=== PATIENT | female | born 1965 | race Caucasian/White ===

== ENCOUNTER 2021-09-17 13:30 | Outpatient (REF) | payer BC, SELFPAY ==
--- NOTE | ~2021-09-17 | MM_ITS ---
EXAMINATION: MM SCREENING DIGITAL BREAST TOMOSYNTHESIS, BILATERAL CLINICAL INFORMATION: Screening. Asymptomatic. Family history breast cancer, mother. The lifetime risk of breast cancer based on the Tyrer-Cuzick Model is 24%. COMPARISON: Mammography: 08/08/2020, 07/25/2020, 04/06/2019, 12/05/2017, 09/16/2016, 06/12/2015 TECHNIQUE: Digital breast tomosynthesis is performed in both the craniocaudal and mediolateral oblique views along with computer-aided detection (CAD). Synthesized 2D images are generated from the tomosynthesis. Additional exaggerated right CC and additional left CC views are provided. FINDINGS: There are scattered areas of fibroglandular density (ACR BI-RADS breast composition Category b). Parenchymal pattern is similar to prior studies. No developing density. No interval mass or architectural abnormality or abnormal calcifications. The axilla and skin contours are unremarkable. MM/MM tomosynthesis screening BI IMPRESSION: No mammographic evidence of malignancy. ASSESSMENT: BI-RADS 1: Negative RECOMMENDATION: Routine annual mammography screening. This patient's information was entered into a reminder system with a target due date for their next mammogram.
== END 2021-09-17 13:31 | disposition home or self-care (01) ==
LOC: HO.MAMMO 13:30
PROVIDERS: PCP Family Medicine; Visit Provider Family Medicine
DX: Z12.31 Encounter for screening mammogram for malignant neoplasm of breast (principal)
CPT/HCPCS: 77063; 77067

== ENCOUNTER 2022-09-18 14:28 | Outpatient (REF) | payer BC, SELFPAY ==
--- NOTE | ~2022-09-18 | MM_ITS ---
EXAMINATION: MM SCREENING DIGITAL BREAST TOMOSYNTHESIS, BILATERAL CLINICAL INFORMATION: Screening. Asymptomatic. The lifetime risk of breast cancer based on the Tyrer-Cuzick Model is 21.8%. Additional annual screening with breast MRI may be of benefit in women with a Score of 20% or greater. COMPARISON: Mammography: September 17, 2021 and studies dating back to April 02, 2014 TECHNIQUE: Digital breast tomosynthesis is performed in both the craniocaudal and mediolateral oblique views along with computer-aided detection (CAD). Synthesized 2D images are generated from the tomosynthesis. FINDINGS: There are scattered areas of fibroglandular density (ACR BI-RADS breast composition Category b). There are no significant masses, abnormal calcifications, or other abnormalities. MM/MM tomosynthesis screening BI IMPRESSION: No significant changes from prior exam. ASSESSMENT: BI-RADS 1: Negative RECOMMENDATION: Routine annual mammography screening. This patient's information was entered into a reminder system with a target due date for their next mammogram.
== END 2022-09-18 14:29 | disposition home or self-care (01) ==
LOC: HO.MAMMO 14:28
PROVIDERS: PCP Family Medicine; Visit Provider Family Medicine
DX: Z12.31 Encounter for screening mammogram for malignant neoplasm of breast (principal)
CPT/HCPCS: 77063; 77067

== ENCOUNTER 2023-03-30 17:07 | Emergency (ER) | payer OTHER, BC, SELFPAY ==
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
[2023-03-30 17:19] VITALS: BP 127/85; PULSE 99; RESP 16; O2SAT 97; BMI 32.9
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
== END 2023-03-30 19:28 | disposition home or self-care (01) ==
PROVIDERS: Emergency Provider Emergency Medicine; PCP Family Medicine
DX: S13.4XXA Sprain of ligaments of cervical spine, initial encounter (principal); M54.2 Cervicalgia; R51.9 Headache, unspecified; V43.52XA Car driver injured in collision with other type car in traffic accident, initial encounter; Y93.9 Activity, unspecified; Y92.481 Parking lot as the place of occurrence of the external cause; Y99.9 Unspecified external cause status
CPT/HCPCS: 70450; 72125; 99282; 99284

== ENCOUNTER 2023-09-24 14:44 | Outpatient (REF) | payer BC, SELFPAY | END 2023-09-24 14:45 | disposition home or self-care (01) | LOC: HO.MAMMO 14:44 | PROVIDERS: PCP Family Medicine; Visit Provider Family Medicine | DX: Z12.31 Encounter for screening mammogram for malignant neoplasm of breast (principal) | CPT/HCPCS: 77063; 77067 ==

== ENCOUNTER → 2023-09-24 14:45 | Outpatient (BNV) | payer BC, SELFPAY | PROVIDERS: PCP Family Medicine; Visit Provider Radiology Diagnostic Radiology | DX: Z12.31 Encounter for screening mammogram for malignant neoplasm of breast (principal) | CPT/HCPCS: 77063; 77067 ==

== ENCOUNTER → 2024-09-29 15:00 | Outpatient (BNV) | payer BC, SELFPAY | PROVIDERS: PCP Family Medicine; Visit Provider Internal Medicine | DX: Z12.31 Encounter for screening mammogram for malignant neoplasm of breast (principal) | CPT/HCPCS: 77063; 77067 ==

== ENCOUNTER 2024-09-29 15:02 | Outpatient (REF) | payer BC, SELFPAY ==
--- NOTE | ~2024-09-29 | MM_ITS ---
EXAMINATION: MM SCREENING DIGITAL BREAST TOMOSYNTHESIS, BILATERAL CLINICAL INFORMATION: Screening. Asymptomatic. COMPARISON: Mammography: Comparison is made with available priors TECHNIQUE: Digital breast mammography with tomosynthesis is performed in both the craniocaudal and mediolateral oblique views along with computer-aided detection (CAD). FINDINGS: There are scattered areas of fibroglandular density (ACR BI-RADS breast composition Category b). There are no significant masses, abnormal calcifications, or other abnormalities. MM/MM tomosynthesis screening BI IMPRESSION: No mammographic evidence of malignancy. ASSESSMENT: BI-RADS BI-RADS 1 - Negative RECOMMENDATION: Routine annual mammography screening. 1 year F/U This examination should not preclude the clinical evaluation of a suspicious palpable abnormality. This patient's information was entered into a reminder system with a target due date for their next mammogram. Electronically signed by: Ami Diehl DO 10/08/2024 10:01 AM [facility]
== END 2024-09-29 15:03 | disposition home or self-care (01) ==
LOC: HO.MAMMO 15:02
PROVIDERS: PCP Family Medicine; Visit Provider Family Medicine
DX: Z12.31 Encounter for screening mammogram for malignant neoplasm of breast (principal)
CPT/HCPCS: 77063; 77067

== ENCOUNTER 2025-10-05 15:13 | Outpatient (REF) | payer BC, SELFPAY ==
--- OUTSIDE RECORDS SUMMARY | 2025-10-05 18:11 | XMS_ITS | Encounter Summary ---
Author Organization [facility] Address [address] [place] [id number] Phone Care Team Providers Care Machine Mover Name Role Phone Carolann Cash MD, MPH Primary Care Provid er Carolann Cash MD, MPH Unavailable + [phone] Carolann Cash MD, MPH Unavailable + [phone] Encounter Details Date Type Department Care Team (Late st Contact Info) Description 10/23/2021 Procedure Pass [facility] Endoscopy Admitting Dept Virtual Department [address] [place] [address] Social History Tobacco Use Types Packs/Day Years Used Date Smoking Tobacco: Never Smokeless Tobacco: Never Alcohol Use Standard Drinks/Week Comments Yes 4 (1 standard drink = 0.6 oz pur e alcohol) Child or Family Care Answer Date Record ed Do you have problems with on e of the following making it difficult for you to work, study, or receive health care? No 05/07/2021 Education Answer Date Recorded Are you interested in help w ith more adult education (for example, completing high school, GED, job training, learning the [place] language, technical skills, or developing parenting skills)? No 05/07/2021 Are you concerned about learning? Not on file 05/07/2021 Not on file 05/07/2021 Not on file 05/07/2021 Food Answer Date Recorded Within the past 6 months we worried whether our food would run out before we got money to buy more. Never True 05/07/2021 Within the past 6 months the food we bought just didn't last and we didn't have enough money to get more. Never True Paying for Meds Answer Date Recorded Do you have trouble paying for medicines? No 05/07/2021 Paying Utility Bills Answer Date Record ed Do you have trouble paying your heating or elect ricity bill? No 05/07/2021 Transportation Answer Date Recorded Has the lack of transportati on kept you from medical appointments or from getting medications? No 05/07/2021 Comments Unknown Sex and Gender Information Value Date Recorded Sex Assigned at Female 05/07/2021 4:08 PM EDT Legal Sex Female 11:32 AM EDT Gender Identity Female 05/07/2021 4:08 PM EDT Sexual Orientation Straight 05/07/2021 4: 08 PM EDT documented as of this encounter Plan of Treatment Not on file documented as of this encounter Visit Diagnoses Not on filedocumented in this encounter Additional Health Concerns Assessment Noted Time PHQ-2 Depression Total Score: 0 10/07/20 21 11:45 AM EST documented as of this encounter Care Teams Machine Mover Relationship Specialty Start Date End Date Carolann Cash MD, MPH [address] [place] [phone] [email or web address] PCP - General Family Medicine 05/07/21 Carolann Cash MD, MPH [address] [place] [phone] Referring Physician Family Medicine 07/02/23 Carolann Cash MD, MPH [address] [id number] [email or web address] Insurance Assigned Provider 12/06/24 documented as of this encounter Additional Source Comments The information contained in this document represents components of the legal health record. It is not the complete legal health record.[facility]
--- OUTSIDE RECORDS SUMMARY | 2025-10-05 18:12 | XMS_ITS | Patient Health Record ---
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
--- OUTSIDE RECORDS SUMMARY | 2025-10-05 18:12 | XMS_ITS | Data Portability ---
Author Organization [facility] Address [address] [facility] [address] [address] Assessment Encounter Date Assessment Date Assessment LastModified by Organization Details LastModified Time 04/18/2022 04/18/2022 Anastasiya Mayers is a 57 year old woman with complaints of knee pain. On exam, she has tenderness on palpation of the medial joint line with mild swelling of both knees. She is here for bilateral knee steroid injections under ultrasound guidance.The risks and benefits of the procedure were reviewed in detail . She wishes to proceed. She can follow up as needed. [email or web address] Not available 04/18/2022 16:15:27 05/21/2022 05/21/2022 Anastasiya Mayers is a 57 year old woman with low back pain radiating into the both lower extremities. On exam ,she has pain on flexion. MRI Lumbar spine shows multilevel discogenic degenerative changes between L2-3 and L5-S1 . Left subarticular extruded disc herniation at L5-S1 with left S1 nerve root impingement. Disc bulging at L4-5 which abuts the exiting right L4 nerve root sleeve. Left lateral disc herniation L 3-4 impinging on the exiting the left L3 nerve root. Postoperative changes on the left at L5-S1 . She is here for a Lumbar epidural steroid injections under fluoroscopic guidance . The risks and benefits of the procedure were discussed in detail. She wishes to proceed. She can follow up as needed. [email or web address] Not available 05/21/2022 14:52:51 07/10/2022 07/10/2022 Anastasiya Mayers is a 57 year old woman with complaints of knee pain. On exam, she has tenderness on palpation of the medial joint line with mild swelling of both knees. She is here for bilateral knee steroid injections under ultrasound guidance.The risks and benefits of the procedure were reviewed in detail . She wishes to proceed. She can follow up as needed. elizabeth Not available 07/10/2022 15:59:12 09/10/2022 09/10/2022 Anastasiya Mayers is a 57 year old woman with low back pain radiating into the both lower extremities. On exam ,she has pain on flexion. MRI Lumbar spine shows multilevel discogenic degenerative changes between L2-3 and L5-S1 . Left subarticular extruded disc herniation at L5-S1 with left S1 nerve root impingement. Disc bulging at L4-5 which abuts the exiting right L4 nerve root sleeve. Left lateral disc herniation L 3-4 impinging on the exiting the left L3 nerve root. Postoperative changes on the left at L5-S1 . She is here for a Lumbar epidural steroid injections under fluoroscopic guidance . The risks and benefits of the procedure were discussed in detail. She wishes to proceed. She can follow up as needed. elizabeth Not available 09/10/2022 14:52:51 01/21/2023 01/21/2023 Anastasiya Mayers is a 57 year old woman with low back pain radiating into the both lower extremities. On exam ,she has pain on flexion. MRI Lumbar spine shows multilevel discogenic degenerative changes between L2-3 and L5-S1 . Left subarticular extruded disc herniation at L5-S1 with left S1 nerve root impingement. Disc bulging at L4-5 which abuts the exiting right L4 nerve root sleeve. Left lateral disc herniation L 3-4 impinging on the exiting the left L3 nerve root. Postoperative changes on the left at L5-S1 . She is here for a Lumbar epidural steroid injections under fluoroscopic guidance . The risks and benefits of the procedure were discussed in detail. She wishes to proceed. She can follow up in two months elizabeth Not available 01/21/2023 14:25:14 Plan of Treatment Reminders Order Date Submit Date Provider Last Modified By Organization Details Last Modified Time Details Appointments None record ed. Lab None record ed. Referral None record ed. Procedures None record ed. Surgeries None record ed. Imaging None record ed. Medication Orders None record ed. Patient TargetsNo targets recorded. Patient Instructions Encounter Date Encounter Id Patient Instructions Last Modified By Organization Details Last Modified Time 04/18/2022 [id number] She was advised against bed rest lasting longer than four days and to continue activities as tolerated. [email or web address] Not available 04/18/2022 16:14:19 05/21/2022 [id number] She was advised against bed rest lasting longer than four days and to continue activities as tolerated. [email or web address] Not available 05/21/2022 14:51:33 07/10/2022 [id number] She was advised against bed rest lasting longer than four days and to continue activities as tolerated. [email or web address] Not available 07/10/2022 15:59:13 09/10/2022 [id number] She was advised against bed rest lasting longer than four days and to continue activities as tolerated. [email or web address] Not available 09/10/2022 14:52:54 01/21/2023 [id number] She was advised against bed rest lasting longer than four days and to continue activities as tolerated. [email or web address] Not available 01/21/2023 14:23:55 Reason for Referral None Reported. Results Created Date Observation Date Name Description Value Unit Range Abnormal Flag Note LastModifiedBy Organization Detail LastModifiedTime 09/11/20 22 09/11/2022 XR, lumba r spine No observ ation record ed. [facility]) [address], [place], [address], 09/12/2022 09:46:06 09/11/20 22 09/11/2022 XR, knee No observ ation record ed. [facility]) [address], [place], [address], 09/12/2022 09:46:19 Result Notes None recorded. Problems Name Problem SNOMED Code Status Onset Date Resolution Date Notes Provider Name and Address Organization Details Recorded Time Lumbar post-laminecto my syndrome 889256035 Active Dav jackson MD [address] [facility] , [address], [facility], [address] , [facility] - Pain Management 07/25/201 9 15:17:52 Lumbosacral radiculopathy 2911338 Active Dav jackson MD [address] , [address], [place], [address], [place] [facility] 15:18:05 Degeneration of lumbar intervertebral disc 99392094 Active Dav jackson MD [address] , [address], [place], [address], [place] [facility] 15:18:14 Lumbosacral spondylosis without myelopathy 62698393 Active Dav jackson MD [address] , [address], [place], [address], [place] [facility] 15:18:32 Problem Notes None recorded. Procedures Surgical History Date Name Laterality Status Provider Name and Address Organization Details Recorded Time 01/21/20 23 Lumbar Epidural steroid injection under fluoroscopic guidance completed Dav Mon MD [address] , [address], [place], [address], [place] [facility] 01/21/2023 14:24:41 09/10/20 22 Lumbar Epidural steroid injection under fluoroscopic guidance completed Dav Mon MD [address] , [address], [place], [address], [place] [facility] 09/10/2022 14:54:21 07/10/20 22 Intra-articular Knee Steroid Injection completed Dav Mon MD [address] , [address], [place], [address], [place] [facility] 07/10/2022 15:59:23 05/21/20 22 Lumbar Epidural steroid injection under fluoroscopic guidance completed Dav Mon MD [address] , [address], [place], [address], [place] [facility] 05/21/2022 14:52:23 04/18/20 22 Intra-articular Knee Steroid Injection completed Dav Mon MD [address] , [address], [place], [address], [place] [facility] 04/18/2022 16:14:38 03/08/20 22 Lumbar Epidural steroid injection under fluoroscopic guidance completed Dav Mon MD [address] , [address], [place], [address], [place] [facility] 02/05/2022 14:24:57 01/03/20 22 Intra-articular Knee Steroid Injection completed Dav Mon MD [address] , [address], [place], [address], [place] [facility] 01/03/2022 16:11:10 10/03/20 21 Intra-articular Knee Steroid Injection completed Dav Mon MD [address] , [address], [place], [address], [place] [facility] 10/03/2021 14:51:11 09/19/20 21 Lumbar Epidural steroid injection under fluoroscopic guidance completed Dav Mon MD [address] , [address], [place], [address], [place] [facility] 09/19/2021 13:23:01 07/05/20 21 Intra-articular Knee Steroid Injection completed Dav Mon MD [address] , [address], [place], [address], [place] [facility] 07/05/2021 13:49:44 04/05/20 21 Intra-articular Knee Steroid Injection completed Dav Mon MD [address] , [address], [place], [address], [place] [facility] 04/05/2021 14:02:44 03/15/20 21 Intra-articular Knee Steroid Injection completed Dav Mon MD [address] , [address], [place], [address], [place] [facility] 03/15/2021 14:40:20 12/14/19 21 Intra-articular Knee Steroid Injection completed Dav Mon MD [address] , [address], [place], [address], [place] [facility] 12/14/2020 14:21:08 09/14/20 20 Intra-articular Knee Steroid Injection completed Dav Mon MD [address] , [address], [place], [address], [place] [facility] 09/14/2020 14:27:11 07/18/20 20 Lumbar Epidural steroid injection under fluoroscopic guidance completed Dav Mon MD [address] , [address], [place], [address], [place] [facility] 07/19/2020 09:45:01 06/07/20 20 Intra-articular Knee Steroid Injection completed Dav Mon MD [address] , [address], [place], [address], [place] [facility] 06/07/2020 15:21:33 04/18/20 20 Lumbar Epidural steroid injection under fluoroscopic guidance completed Dav Mon MD [address] [facility] , [address], [place], [address], [place] [facility] 04/20/2020 09:43:01 01/25/20 20 Lumbar Epidural steroid injection under fluoroscopic guidance completed Dav Mon MD [address] [facility] , [address], [place], [address], [place] [facility] 01/25/2020 15:21:05 10/26/20 19 Lumbar Epidural steroid injection under fluoroscopic guidance completed [facility] [address], [place], [address], [place] [facility] 10/27/2019 10:41:05 07/14/20 19 Lumbar Epidural steroid injection under fluoroscopic guidance completed Dav [facility] MD [address] [facility] [address], [place], [address], [place] [facility] 07/16/2019 09:54:03 Back Surgery completed Rosemarie Hernandez [place] - [facility] 06/24/2019 15:23:12 Other completed Rosemarie Hernandez [place] - [facility] 06/24/2019 15:23:45 Imaging Results None recorded. Procedure Notes None recorded. Medical Equipment None Reported. Allergies No known drug allergies Medications Name Sig Start Date Stop Date Status Note LastModified by Organization Details LastModified Time cyclobenzap rine 10 mg tablet TK 1 T PO D HS PRF SPASM 06/24 completed Not Available Not Available Not Available gabapentin 600 mg tablet TK 1 T PO TID 06/24 completed Not Available Not Available Not Available prednisone 20 mg tablet TK 1 T PO IN THE MORNING WF FOR 5 DAYS UTD 01/25 completed Not Available Not Available Not Available IB Pro 400 mg tablet Take 1 tablet every 4 hours by oral route. active Not Available Not Available No t Available amoxicillin 875 mg tablet TAKE 1 TABLET BY MOUTH TWICE DAILY FOR 10 DAYS FOR INFECTION 07/10 completed Not Available Not Available Not Available aspirin 325 mg tablet,palma yed release TAKE 1 TABLET BY MOUTH ONCE A DAY FOR 14 DAYS POST OPERATIVE LY 01/21 completed Not Available Not Available Not Available benzonatate 100 mg capsule TK 1 C PO TID FOR 10 DAYS. DO NOT CRU OR CHEW 06/24 completed Not Available Not Available Not Available clotrimazol e-betametha sone 1 %-0.05 % topical cream APPLY TOPICALLY TO THE AFFECTED AREA TWICE DAILY SPARINGLY FOR 2 WEEKS FOR FUNGAL OR YEAST INFECTION active Not Available Not Available No t Available gabapentin 300 mg capsule TK 1 C PO TID 06/24 completed Not Available Not Available Not Available hydrochloro thiazide 25 mg tablet TAKE 1 TABLET BY MOUTH DAILY active Not Available Not Available No t Available doxycycline hyclate 100 mg tablet TK 1 T PO BID FOR 7 DAYS 01/25 completed Not Available Not Available Not Available loratadine 10 mg tablet TK 1 T PO D FOR 14 DAYS 06/24 completed Not Available Not Available Not Available amoxicillin 875 mg-potassiu m clavulanate 125 mg tablet TK 1 T PO Q 12 H FOR 7 DAYS 04/18 completed Not Available Not Available Not Available oxycodone 5 mg tablet TAKE 1 TABLET BY MOUTH EVERY 6 HOURS NEEDED FOR PAIN (DO NOT DRIVE WHILE ON THIS MEDICATIO N) active Not Available Not Available No t Available Virtussin AC 10 mg-100 mg/5 mL oral liquid TK 5 MLS PO Q 4 H PRF COUGH FOR 5 DAYS 01/25 completed Not Available Not Available Not Available Plenvu 140 gram-9 gram-5.2 gram powder packs MIX AND DRINK DIRECTED 01/03 completed Not Available Not Available Not Available Vitals Date Recorded Body height Heart rate Oxygen saturation Oxygen saturation in Arterial blood by Pulse oximetry Systolic And Diastolic Provider Name and Address Organization Details Last Updated DateTime 3 167.64 cm 77 /min 99 % 99 % 153/62 mm[Hg] Yolis Madera [place] [facility] 3 14:03:41 Date Recorded Body height Body mass index (BMI) Body weight Heart rate Oxygen saturation Oxygen saturation in Arterial blood by Pulse oximetry Systolic And Diastolic Provider Name and Address Organization Details Last Updated DateTime 2 167.64 cm 31.5 kg/m2 07026.5 1 g 6 /min 95 % 95 % 147/84 mm[Hg] Dav jackson MD [address] , [address], [place], [address], [place] [facility] 2 15:06:01 Date Recorded Body height Heart rate Oxygen saturation Oxygen saturation in Arterial blood by Pulse oximetry Systolic And Diastolic Provider Name and Address Organization Details Last Updated DateTime 2 167.64 cm 86 /min 98 % 98 % 150/64 mm[Hg] Dav jackson MD [address] , [address], [place], [address], [place] [facility] 2 14:34:44 Date Recorded Body height Heart rate Oxygen saturation Oxygen saturation in Arterial blood by Pulse oximetry Systolic And Diastolic Provider Name and Address Organization Details Last Updated DateTime 2 167.64 cm 64 /min 97 % 97 % 150/68 mm[Hg] Chante Holt [place] - [facility] 2 15:44:29 Date Recorded Body height Heart rate Oxygen saturation Oxygen saturation in Arterial blood by Pulse oximetry Systolic And Diastolic Provider Name and Address Organization Details Last Updated DateTime 2 167.64 cm 83 /min 99 % 99 % 149/53 mm[Hg] Dav jackson MD [address] , [address], [place], [address], [place] [facility] 2 14:32:14 Social History Question Answer Notes LastModified by Organizat ion Details LastModified Time Tobacco Smoking Status Never Smoker Rosemarie tran, [place] - [facility] 06/24/2019 15:19:05 Which Illicit Or Recreational Drugs Have You Used? No Information not available 06/24/2019 Education 12 With Some College Information not available 06/24/2019 Live Alone Or With Others? With Others Information not available 06/24/2019 Marital Status Informatio n not available 06/24/2019 Sex: Unknown Functional Status Question Answer Note LastModified by Organizat ion Details LastModified Time What is your level of alcohol consumption? 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 Teacher Information not available 06/24/2019 Mental Status None recorded. Family History Relationship Description Onset Age of this Age Resolved Age Notes LastModified by Organization Details LastModified Time Father Malignant neoplastic disease Leukem ia Not available 06/24/2019 15:18:31 Mother Malignant neoplastic disease Breast / Lung Not available 06/24/2019 15:18:31 Brother Malignant neoplastic disease Talon ns Not available 06/24/2019 15:18:31 Sister Malignant neoplastic disease Talon n Not available 06/24/2019 15:18:31 Medical History Condition Response Hypertension Y Gynecological HistoryNo gynecological history recorded. Obstetrics History GPAL:G 0 P 0 0 0 0 Past Encounters Encounter ID Performer Location Encounter Start Date Encounter Closed Date Diagnosis/Indication Diagnosis SNOMED-CT Code Diagnosis ICD10 Code Diagnosis IMO Codes Diagnosis Note [id number] Dav Mon MD PAIN OFFICE [address] [place] [address] 06/24/2019 14:50:11 06/25/2019 16:44:44 Lumbar post-laminectomy syndrome 000130460 M96.1 Lumbosacra l radiculopathy 6055620 M54.17 Degenerati on of lumbar intervertebral disc 96402064 M51.36 Lumbosacra l spondylosis without myelopathy 06701477 M47.817 [id number] Dav Mon MD PAIN OFFICE [address] [place] [address] 07/14/2019 14:31:46 07/16/2019 09:57:41 Lumbar post-laminectomy syndrome 885830452 M96.1 Lumbosacra l radiculopathy 6767457 M54.17 Degenerati on of lumbar intervertebral disc 43551049 M51.36 Lumbosacra l spondylosis without myelopathy 76071396 M47.817 [id number] Dav Mon MD PAIN OFFICE [address] [facility] [place] [address] 09/06/2019 13:59:25 09/06/2019 16:39:07 Lumbar post-laminectomy syndrome 599671191 M96.1 Lumbosacra l radiculopathy 5516266 M54.17 Degenerati on of lumbar intervertebral disc 85017076 M51.36 Lumbosacra l spondylosis without myelopathy 80617173 M47.817 [id number] Dav Mon MD PAIN OFFICE [address] [facility] [place] [address] 10/26/2019 15:05:59 10/27/2019 10:43:51 Lumbar post-laminectomy syndrome 026038159 M96.1 Lumbosacra l radiculopathy 6377739 M54.17 Degenerati on of lumbar intervertebral disc 60691882 M51.36 Lumbosacra l spondylosis without myelopathy 30364678 M47.817 [id number] Dav Mon MD PAIN OFFICE [address] [facility] [place] [address] 01/25/2020 14:55:10 01/25/2020 15:26:09 Lumbar post-laminectomy syndrome 577860448 M96.1 Lumbosacra l radiculopathy 1395175 M54.17 Degenerati on of lumbar intervertebral disc 84967373 M51.36 Lumbosacra l spondylosis without myelopathy 26792605 M47.817 [id number] Dav Mon MD PAIN OFFICE [address] [facility] [place] [address] 04/18/2020 14:27:14 04/20/2020 10:18:02 Lumbar post-laminectomy syndrome 884457678 M96.1 Lumbosacra l radiculopathy 0916170 M54.17 Degenerati on of lumbar intervertebral disc 23649884 M51.36 Lumbosacra l spondylosis without myelopathy 07827564 M47.817 [id number] Dav Mon MD PAIN OFFICE [address] [place] [address] 05/18/2020 10:00:32 05/18/2020 10:32:27 Lumbar post-laminectomy syndrome 686361193 M96.1 Lumbosacra l radiculopathy 9648488 M54.17 Degenerati on of lumbar intervertebral disc 85878887 M51.36 Lumbosacra l spondylosis without myelopathy 21442120 M47.817 [id number] Dav Mon MD PAIN OFFICE [address] [place] [address] 06/07/2020 14:49:29 06/07/2020 15:26:01 Osteoarthritis of knee 573298499 M17.0 [id number] Dav Mon MD [facility] [address] [place] [address] 07/18/2020 13:50:19 07/19/2020 10:04:59 Lumbar post-laminectomy syndrome 232200752 M96.1 Lumbosacra l radiculopathy 3804517 M54.17 Degenerati on of lumbar intervertebral disc 79068620 M51.36 Lumbosacra l spondylosis without myelopathy 46511820 M47.817 [id number] Dav Mon MD [facility] [address] [place] [address] 09/14/2020 13:59:32 09/14/2020 14:33:14 Osteoarthritis of knee 978914150 M17.0 [id number] Dav Mon MD [facility] [address] [place] [address] 12/14/2020 13:55:24 12/14/2020 14:22:46 Osteoarthritis of knee 918505366 M17.0 [id number] Dav Mon MD [facility] [address] [place] [address] 03/15/2021 14:02:58 03/15/2021 14:44:36 Osteoarthritis of knee 780897972 M17.0 [id number] Dav Mon MD [facility] [address] [place] [address] 04/05/2021 13:37:00 04/05/2021 14:04:03 Osteoarthritis of knee 307548403 M17.0 [id number] Dav Mon MD [facility] [address],[place] [address] 07/05/2021 13:27:10 07/05/2021 13:51:35 Osteoarthritis of knee 126221480 M17.0 [id number] Dav Mon MD [facility] [address],[place] [address] 09/19/2021 11:35:15 09/19/2021 13:32:14 Lumbar post-laminectomy syndrome 530468252 M96.1 Lumbosacra l radiculopathy 0662702 M54.17 Degenerati on of lumbar intervertebral disc 30600860 M51.36 Lumbosacra l spondylosis without myelopathy 45617181 M47.817 [id number] Dav Mon MD [facility] [address],[place] [address] 10/03/2021 13:53:11 10/03/2021 15:04:33 Osteoarthritis of knee 415793227 M17.0 [id number] Dav Mon MD [facility] [address] [address] 01/03/2022 13:32:04 01/03/2022 16:13:47 Osteoarthritis of knee 322785552 M17.0 [id number] Dav Mon MD [facility] [address],[place] [address] 02/05/2022 13:59:25 02/05/2022 14:27:30 Lumbar post-laminectomy syndrome 868850903 M96.1 Lumbosacra l radiculopathy 2869070 M54.17 Degenerati on of lumbar intervertebral disc 40328218 M51.36 Lumbosacra l spondylosis without myelopathy 88615075 M47.817 [id number] Dav Mon MD PAIN OFFICE [address] [place] [address] 04/18/2022 14:55:45 04/18/2022 16:16:10 Osteoarthritis of knee 250350291 M17.0 [id number] Dav Mon MD PAIN OFFICE [address] [place] [address] 05/21/2022 14:29:59 05/21/2022 14:55:14 Lumbar post-laminectomy syndrome 941533695 M96.1 Lumbosacra l radiculopathy 0390060 M54.17 Degenerati on of lumbar intervertebral disc 19471222 M51.36 Lumbosacra l spondylosis without myelopathy 37901729 M47.817 [id number] Dav Mon MD PAIN OFFICE [address] [place] [address] 07/10/2022 15:28:32 07/10/2022 16:00:57 Osteoarthritis of knee 448515329 M17.0 [id number] Dav Mon MD PAIN OFFICE [address] [place] [address] 09/10/2022 14:28:31 09/10/2022 15:19:36 Lumbar post-laminectomy syndrome 878020231 M96.1 Lumbosacra l radiculopathy 8952395 M54.17 Degenerati on of lumbar intervertebral disc 68832066 M51.36 Lumbosacra l spondylosis without myelopathy 64770880 M47.817 [id number] Dav Mon MD PAIN OFFICE [address] [place] [address] 01/21/2023 14:01:18 01/21/2023 14:31:01 Lumbar post-laminectomy syndrome 591275570 M96.1 Lumbosacra l radiculopathy 4024317 M54.17 Degenerati on of lumbar intervertebral disc 13388968 M51.36 Lumbosacra l spondylosis without myelopathy 57696269 M47.817 Health Concerns Section Related Observation LastModified by Organization Detai ls LastModified Time None Recorded Concern Status LastModified by Organization Details LastModified Time None Recorded Advance Directives Directive None Recorded Payers Insurance Date Sequence Insurance Name Policy Number Policy Clark Covered Member ID Clark Member ID Guarantor Name 03/31/[address] ([facility]) [id number] 1 Anastasiya Mayers [id number] Anastasiya Mayers Notes Date Note Type Note Provider Name and Address Organization Details Recorded Time 04/18/2022 text/html She is here for a bilateral knee steroid injection under ultrasound guidance Dav Mon MD [address] [facility] , [address] [address], [place], [address], [place] [facility] 04/18/2022 16:47:48 05/21/2022 text/html She is here for a lumbar epidural steroid injection under fluoroscopic guidance. Dav Mon MD [address] [facility] , [address] [address], [place], [address], [place] [facility] 05/21/2022 15:00:46 07/10/2022 text/html She is here for a bilateral knee steroid injection under ultrasound guidance Dav Mon MD [address] [facility] , [address], [place], [address], [place] [facility] 07/10/2022 16:11:41 09/10/2022 text/html She is here for a lumbar epidural steroid injection under fluoroscopic guidance. Dav Mon MD [address] [facility] , [place] [address], [place], [address], [place] - [facility] 09/10/2022 15:27:04 01/21/2023 text/html She is here for a lumbar epidural steroid injection under fluoroscopic guidance. Dav Mon MD [address] [place] [address] , [address], [facility] [id number], [facility] Pain [facility] 01/21/2023 14:48:43 OBGyn Episode No OBEpisode recorded.
--- OUTSIDE RECORDS SUMMARY | 2025-10-05 18:12 | XMS_ITS | Clinical Summary ---
Author Organization [facility] Address [address] [address] Phone Care Team Providers Care Undergraduate Advisor Name Role Phone Carolann Cash MD, MPH Primary Care Provid er Carolann Cash MD, MPH Unavailable +- [phone] Carolann Cash MD, MPH Unavailable +- [phone] Allergies No known active allergies Medications hydroCHLOROthiazi de 25 MG tabletIndications :Essential hypertension TAKE 1 TABLET(25 MG) BY MOUTH DAILY 90 tablet 3 01/24/2025 Active sertraline (ZOLOFT) 50 MG tabletIndications :Complicated grief TAKE 1 TABLET(50 MG) BY MOUTH DAILY 90 tablet 3 03/28/2025 Active Active Problems Problem Noted Date Diagnosed Date Complicated grief 01/10/2024 Overview (01/10/2024): Brother committed suicide Jan 2023 Assessment & Plan (01/24/2025 1:40 PM EST): Controlled, cont current meds Assessment & Plan (01/10/2024 10:33 PM EST): Reviewed resources, normal grieving but also the ability for medication to provide some support. She is open to starting zoloft. Reviewed side effects and time to effect. Hyperlipidemia 02/19/2023 Assessment & Plan (01/24/2025 1:40 PM EST): Due for monitoring. Last year was improved. Orders: Lipid panel; Future Comprehensive metabolic panel; Future Assessment & Plan (02/19/2023 10:35 PM EDT): Not on meds, work on return to exercise and check levels before FUV in 6 months Varicose veins of right lower extremity with umang n 10/08/2021 Essential hypertension 05/29/2021 Assessment & Plan (01/24/2025 1:40 PM EST): Well controlled, cont current meds Orders: Comprehensive metabolic panel; Future Assessment & Plan (02/19/2023 10:34 PM EDT): Well controlled, cont current meds Assessment & Plan (05/29/2021 12:24 PM EDT): Borderline well controlled today. Chronic pain of both knees 05/29/2021 Assessment & Plan (05/29/2021 12:23 PM EDT): Cont with current provider in [facility] Family history of breast cancer 05/29/2021 Immunizations Immunization Administration Dates Next Due COVID-19 (Pre-09/22) Pfizer Vaccine, mRNA, PF ,02/14/2021 INFLUENZA, SPLIT VIRUS, TRIVALENT W/ PRESERVATIV E IM 09/23/2019 Td (adult) 5 Lf Tetanus Toxoid, PF, Adsorbed Tdap 08/20/2011 Family History Medical History Relation Comments Lymphoma Brother Hodgkins Suicide Brother No Known Problems Daughter Leukemia Father Lung cancer Maternal Aunt Coronary artery disease Maternal Grandfather Breast cancer Maternal Grandmother Lung cancer Maternal Grandmother Breast cancer Mother Diabetes Mother Lung cancer Mother Lymphoma Nephew Breast cancer Paternal Aunt Cancer Paternal Uncle Lymphoma Sister 1 No Known Problems Son Colon cancer Neg Hx Relation Status Comments Brother Daughter Alive Father (Age 67) Maternal Aunt Maternal Grandfather (Age 65) Maternal Grandmother Mother (Age 78) Nephew Alive Paternal Aunt Paternal Uncle Sister 1 (Age 34) Sister 2 Alive Son Alive Social History Tobacco Use Types Packs/Day Years Used Date Smoking Tobacco: Never Smokeless Tobacco: Never Tobacco Cessation:Counseling Given: Not Answered Alcohol Use Standard Drinks/Week Comments Yes 4 (1 standard drink = 0.6 oz pur e alcohol) Child or Family Care Answer Date Record ed Do you have problems with on e of the following making it difficult for you to work, study, or receive health care? No 01/24/2025 Education Answer Date Recorded Are you interested in help w ith more adult education (for example, completing high school, GED, job training, learning the Chinese language, technical skills, or developing parenting skills)? No 01/24/2025 Are you concerned about learning? Not on file 01/24/2025 No 01/24/2025 Yes 01/24/2025 Food Answer Date Recorded Within the past 6 months we worried whether our food would run out before we got money to buy more. Never True 01/24/2025 Within the past 6 months the food we bought just didn't last and we didn't have enough money to get more. Never True Residential Stability Answer Date Recor ded What is your housing situation today? I have stacy sing 01/24/2025 How many times have you move d in the past 12 months? Zero (I did not move) 01/24/2025 Paying for Meds Answer Date Recorded Do you have trouble paying for medicines? No 01/24/2025 Paying Utility Bills Answer Date Record ed Do you have trouble paying your heating or elect ricity bill? No 01/24/2025 Transportation Answer Date Recorded Has the lack of transportati on kept you from medical appointments or from getting medications? No 01/24/2025 Unemployment Answer Date Recorded Are you currently unemployed or working on a part-time or temporary basis, and looking for work? No 02/12/2023 Digital Access Answer Date Recorded No 01/24/2025 Yes 01/24/2025 Do you have reliable internet access at home? Ye s 01/24/2025 Do you have a device (e.g., phone, tablet, computer) with a working camera? Yes 01/24/2025 Intimate Partner Violence Answer Date R ecorded Denied Basic Needs Not on file 01/24/2025 In the past 12 months have y ou been in a relationship with a person who hurts, threatens, or tries to control you? No 01/24/2025 Worried food would run out Not on file 01/24 In the past 12 months have y ou been in a relationship with a person who hurts, threatens, or tries to control you? No 01/24/2025 Comments Unknown Sex and Gender Information Value Date Recorded Sex Assigned at Female 05/07/2021 4:08 PM EDT Legal Sex Female 11:32 AM EDT Gender Identity Female 05/07/2021 4:08 PM EDT Sexual Orientation Straight 05/07/2021 4: 08 PM EDT Last Filed Vital Signs Vital Sign Reading Time Taken Comments Blood Pressure 114/70 01/24/2025 11:12 AM EST Pulse 84 01/24/2025 11:12 AM EST Temperature 36.6 C (97.9 F) 11/20/2023 1:41 PM EST Respiratory Rate 16 10/23/2021 12:40 PM EST Oxygen Saturation 98% 01/24/2025 11:12 AM EST Inhaled Oxygen Concentration - - Weight 93 kg (205 lb) 01/24/2025 11:12 AM EST Height 163.8 cm (5' 4.5 ) 02/19/2023 1:00 PM EDT Body Mass Index 34.64 02/19/2023 1:00 PM EDT Plan of Treatment Health Maintenance Due Date Last Done Comments COLOGUARD 2009 FIT TEST 2009 FOBT 2009 SIGMOIDOSCOPY 2009 VIRTUAL COLONOSCOPY 2009 PNEUMOCOCCAL VACCINES (50+ years) (1 of 1 - PCV) 2014 ZOSTER VACCINES (1 of 2) 2014 POTASSIUM LEVEL 03/18/2025 03/18/2024, 05/01, 01/21/2022 INFLUENZA VACCINE (#1) 2025 09/23/2019 BLOOD PRESSURE 07/24/2025 01/24/2025 COVID-19 VACCINE (4 - season) 2025 03/10/2022, 03/07/2021, 02/14/2021 DEPRESSION SCREENING 01/24/2026 01/24/2025 PAP SMEAR 02/19/2026 02/19/2023 MAMMOGRAM 09/29/2026 09/29/2024, 09/01, 09/18/2022, Additional history exists SCREENING FOR DIABETES 03/18/2027 03/18/2024 Adult Td,Tdap Booster 04/22/2027 04/22/2017, 011 LIPID PANEL 03/18/2029 03/18/2024, 06/01/2023, 01/21/2022 COLONOSCOPY 10/23/2031 10/23/2021 COLORECTAL CANCER SCREENING 10/23/2031 RSV VACCINE (1 - 1-dose 75+ series) 2039 HEPATITIS C SCREENING Completed 01/21/2022 HIV ONE-TIME SCREENING (18-65 YEARS) Completed 01/21/2022 SMOKING STATUS SCREENING (Once After 26 Yrs) Completed 01/24/2025 HEPATITIS A VACCINES Aged Out No long er eligible based on patient's age to complete this topic HIB VACCINES Aged Out No longer eligi ble based on patient's age to complete this topic MENINGOCOCCAL VACCINES (ACWY) Aged Out No longer eligible based on patient's age to complete this topic MENINGOCOCCAL VACCINES (B) Aged Out N o longer eligible based on patient's age to complete this topic Medical Devices Not on file Procedures Procedure Name Priority Date/Time Associated Diagnosis Comments HM MAMMOGRAPHY Routine 09/29/2024 8:37 AM EDT LIPID PANEL Routine 03/18/2024 8:10 AM EDT Hyperlipidemia, unspecified hyperlipidemia type BASIC METABOLIC PANEL (BMP) Routine 03/18/2024 8:10 AM EDT Essential hypertension PAP TEST Routine 02/19/2023 12:00 AM EDT HEPATITIS C ANTIBODY, QUALITATIVE Routine 01/21/2022 9:17 AM EST Need for hepatitis C screening test ENDOSCOPY, COLON 10/23/2021 12:0 2 PM EST from Last 3 Months or Most Recently Relevant to Health Maintenance Results * HM MAMMOGRAPHY FOR RESULT ENTRY ONLY (09/29/2024 8:37 AM EDT) us Historical Provider HEALTH MAINTENANCE Edited Result - Final * (ABNORMAL) Lipid panel (03/18/2024 8:10 AM EDT) HDL 68 mg/dL [facility] Comment: Interpretation <40 mg/dL: Low HDL cholesterol (major risk factor for CHD) Greater than or equal to 60 mg/dL: High HDL cholesterol ( negative risk factor for CHD) HDL - cholesterol is affected by a number of factors, e.g. smoking, excerise, hormones, sex and age. CHOLESTEROL 236 0 - 240 mg/dL [facility] TRIGLYCERIDES 106 30 - 160 mg/dL [facility] LDL 147(H) 50 - 129 mg/dL [facility] Comment: LDL levels in terms of risk for coronary heart disease: <100 mg/dL: Optimal 100-129 mg/dL: Near or above optimal 130-159 mg/dL: Borderline high 160-189 mg/dL: High >190 mg/dL: Very High CARDIAC RISK RATIO 3.5 3.3 - 4.4 C [facility] Blood 03/18/2024 8:10 AM EDT 03/18/2024 8:19 AM EDT Carolann Cash MD, MPH LAB BLOOD BKR ORDERA BLES Final Result [address] [address] * (ABNORMAL) Basic metabolic panel (03/18/2024 8:10 AM EDT) SODIUM 143 133 - 146 mmol/L [facility] CHLORIDE 103 96 - 108 mmol/L [facility] POTASSIUM 3.9 3.3 - 5.1 mmol/L [facility] CO2 29 21 - 35 mmol/L [facility] BUN 18 6 - 19 mg/dL [facility] CREATININE 0.50 0.5 - 1.5 mg/dL [facility] GLUCOSE 103(H) 70 - 99 mg/dL [facility] CALCIUM 9.5 8.4 - 10.3 mg/dL [facility] EGFR 108 >59 mL/min/1.7 3m2 [facility] Comment:Estimated glomerular filtration rate calculated using the CKD-EPI refit equation. ANION GAP 15 10 - 20 mmol/L [facility] Blood 03/18/2024 8:10 AM EDT 03/18/2024 8:19 AM EDT Carolann Cash MD, MPH LAB BLOOD BKR ORDERA BLES Final Result [address] [address] * Pap Test (02/19/2023 12:00 AM EDT) 02/19/2023 02/20/2023 10: 10 AM EDT Narrative SEE NARRATIVE - 02/24/2023 11:31 AM EDT [address] [address] Progressive Care Manager: Theresa Wen MD HUMAN RESOURCES FILE CLERK Cytology Report FINAL DIAGNOSIS A. PAP SMEAR (SUREPATH) CE: SPECIMEN ADEQUACY: Satisfactory for evaluation; transformation zone present. INTERPRETATION: NEGATIVE FOR INTRAEPITHELIAL LESION OR MALIGNANCY. Electronically Signed Out By: TRISTON Eason(ASCP) The Pap test is a screening test primarily for squamous cancers and precursors and has associated false-negative and false-positive results. New technologies such as liquid-based preparations may decrease but will not eliminate all false-negative results. Regular sampling and follow-up of unexplained clinical signs and symptoms are recommended to minimize false negative results. PROCEDURES/ADDENDA HPV Testing (Requested) Ordered Date: 02/20/2023 A. PAP SMEAR (SUREPATH) CE: Human Papilloma Virus Test NEGATIVE for high-risk Human Papilloma Virus types 16, 18, 45 and the Other high risk probe set (Includes 31, 33, 35, 39, 51, 52, 56, 58, 59, 66, 68) Note: Testing performed by [employer] HR-HPV analysis. Clinical correlation is advised. This HPV test was performed at [facility], [address] [place] [address]. This test has been FDA approved for [employer] cervical cytology specimens. The accuracy and precision of this test for all other specimen sources has been verified in the Cytopathology Laboratory of the [facility] and has not been cleared or approved by the U.S. Food and Drug Administration. Clinical correlation is advised. CLINICAL HISTORY Date of Last Menstrual Period: 2014 Menstrual History: Post Menopausal Other Clinical Conditions: Screening Pap SPECIMEN SOURCE A: PAP SMEAR (SUREPATH) CE Patient Name: ANASTASIYA GAYTAN : 1965 (Age: 57) Sex: F Institution: [facility] Location: [facility] Date of Collection: 02/19/2023 Date of Reported: 02/24/2023 11:31 Results to: Carolann Cash MD, MPH us Carolann Cash MD, MPH CYTOLOGY ORDERABLES Final Result SEE NARRATIVE * Hepatitis C antibody, qualitative (01/21/2022 9:17 AM EST) HCV NON-REACTIV E NON-REACTI VE [facility] Blood 01/21/2022 9:17 AM EST 01/21/2022 9:19 AM EST us Carolann Cash MD, MPH LAB BLOOD BKR ORDERA BLES Final Result Performing Organization Address City/[facility]/ZIP Co de Phone Number [address] [address] * ENDOSCOPY, COLON (10/23/2021 12:02 PM EST) Narrative Transcriptions José Manuel Morales MD - 10/23/2021 12:02 PM EST Patient Name: Anastasiya Morganmorena Attending MD:: JOSÉ MANUEL MORALES MD, Procedure Date: 10/23/2021 12:02PM Date of : 1965 Age: 56 Admit Type: Outpatient Gender: Female Room: [place] [address] Referring MD: Carolann Cash Exam Type: Colonoscopy Indications: Screening for colorectal malignant neoplasm Medications: Monitored Anesthesia Care Procedure: Informed consent was obtained from the patient after discussion of the indications, limitations, alternatives, benefits, and risks of the procedure. Risks specifically discussed include but are not limited to medication reactions, missed lesions, bleeding, perforation, or the need for emergentsurgery. Throughout the procedure, the patient's bloodpressure, pulse, end-tidal CO2, and oxygen saturations were monitored continuously. The Olympus adult variable colonoscope [id number] #3was introduced through the anus and advanced to thececum, identified by appendiceal orifice and ileocecalvalve. The colonoscopy was performed without difficulty.The patient tolerated the procedure well. The quality of the bowel preparation was excellent. The quality ofthe bowel preparation was evaluated using the BBPS(Troy Bowel Preparation Scale) with scores of: Right Colon= 3, Transverse Colon = 3 and Left Colon = 3 (entire mucosa seen well with no residual staining, small fragments of stool or opaque liquid). The total BBPS score equals 9. Complications: No immediate complications. Estimated blood loss: Minimal. Findings: The perianal and digital rectal examinations were normal. A 3 mm polyp was found in the rectum. The polyp was sessile. The polyp was removed with a cold snare. Resection and retrieval were complete. Internal hemorrhoids were found during retroflexion. The hemorrhoids were mild. A few small-mouthed diverticula were found in the sigmoid colon. The exam was otherwise normal throughout theexamined colon. Impression: - One 3 mm polyp in the rectum, removed with a cold snare. Resected and retrieved. - Internal hemorrhoids. - Diverticulosis in the sigmoid colon. Recommendation: - Discharge patient to home. - Await pathology results. JOSÉ MANUEL MORALES MD, 10/23/2021 12:25:19 PM This report has been signed electronically. Number of Addenda: 0 Note Initiated On: 10/23/2021 12:02 PM Procedure Code(s): --- Professional --- 63979, Colonoscopy, flexible; with removal of tumor(s), polyp(s), or other lesion(s) by snare technique --- Technical --- 46763, Colonoscopy, flexible; with removal of tumor(s), polyp(s), or other lesion(s) by snare technique Diagnosis Code(s): --- Professional --- Z12.11, Encounter for screening for malignantneoplasm of colon K62.1, Rectal polyp K64.8, Other hemorrhoids K57.30, Diverticulosis of large intestine without perforation or abscess without bleeding --- Technical --- Z12.11, Encounter for screening for malignantneoplasm of colon K62.1, Rectal polyp K64.8, Other hemorrhoids K57.30, Diverticulosis of large intestine without perforation or abscess without bleeding CPT copyright 2018 [employer]. All rights reserved. The codes documented in this report are preliminary and upon laborer sawmill reviewmay be revised to meet current compliance requirements. Procedure Date: 10/23/2021 12:02:[address] [place] [id number] Carolann Cash MD, MPH GI PROCEDURE ORDERAB LES Final Result from Last 3 Months or Most Recently Relevant to Health Maintenance Insurance [facility] OUT [facility] PPO OUT [facility] PPO OUT [facility] PPO BLUE CROSS OUT OF STATE PPO BLUE CROSS OUT OF STATE PPO BLUE CROSS OUT OF STATE PPO Care Teams Undergraduate Advisor Relationship Specialty Start Date End Date Carolann Cash MD, MPH [address] [place] [phone] [email or web address] PCP - General Family Medicine 05/07/21 Carolann Cash MD, MPH [address] [place] [phone] [email or web address] Referring Physician Family Medicine 07/02/23 Carolann Cash MD, MPH [address] [place] [phone] [email or web address] Insurance Assigned Provider 12/06/24 Additional Source Comments The information contained in this document represents components of the legal health record. It is not the complete legal health record.[facility]
== END 2025-10-05 15:14 | disposition home or self-care (01) ==
LOC: HO.MAMMO 15:13
PROVIDERS: PCP Family Medicine; Visit Provider Family Medicine
DX: Z12.31 Encounter for screening mammogram for malignant neoplasm of breast (principal)
CPT/HCPCS: 77063; 77067

== ENCOUNTER → 2025-10-05 15:15 | Outpatient (BNV) | payer BC, SELFPAY | PROVIDERS: PCP Family Medicine; Visit Provider Radiology Body Imaging | DX: Z12.31 Encounter for screening mammogram for malignant neoplasm of breast (principal) | CPT/HCPCS: 77063; 77067 ==